=== PATIENT | male | born 1955 | race Caucasian/White ===

== ENCOUNTER 2018-05-04 08:53 | Day surgery (SDC) | payer BC ==
--- NOTE | 2018-04-08 10:33 | HP ---
AMENDED REPORT NOW INCLUDES COSIGNER DESIGNATION - ESIGNED BEFORE ADJUSTMENT PREOPERATIVE HISTORY AND PHYSICAL: DATE OF ADMISSION: 05/04/18 DATE OF SURGERY: 05/04/18 ATTENDING SURGEON: Jac Saravia MD * (DICTATED BY QAMAR SHOOK) PROCEDURE: Right shoulder arthroscopic rotator cuff repair, decompression, debridement, subpectoral biceps tenodesis, and excision of distal clavicle. CHIEF COMPLAINT: Right shoulder. HISTORY OF PRESENT ILLNESS: Garrison is a 63-year-old male who presents to the clinic for followup of right shoulder pain due to rotator cuff tear, biceps tendinitis and AC joint arthritis. He has failed conservative measures and agreed to undergo a right shoulder arthroscopic rotator cuff repair, decompression, debridement, subpectoral biceps tenodesis, and excision of distal clavicle with Dr. Saravia on 05/04/18. PAST MEDICAL HISTORY: DVT after knee surgery 2 years ago, diverticulitis, GERD , anxiety, and basal cell skin cancer in remission. PAST SURGICAL HISTORY: Cervical laminectomy left shoulder x2, right knee bursectomy. The patient denies prior complications of anesthesia. He does get nauseous with anesthesia. MEDICATIONS: 1. Advil 200 mg 3 to 4 tablets as needed for discomfort. 2. Vitamin D 2000 units 1 by mouth every day. 3. Finacea 15%, apply once or twice a day. 4. Restasis 0.05% 1 drop in each eye 2 times daily. 5. Multivitamin 1 by mouth everyday. 6. Claritin 10 mg 1 by mouth daily. ALLERGIES: ADHESIVE. FAMILY HISTORY: Positive for cancer. SOCIAL HISTORY: He lives with his spouse. He works as an business insurance agent. He denies tobacco use. He reports occasional alcohol consumption. He exercises regularly. He is right-hand dominant. REVIEW OF SYSTEMS: A 14-point review of systems was reviewed with the patient and positive for current complaints; otherwise negative. Denies numbness, tingling, fever, chills, chest pain, shortness of breath, history of bleeding disorder. He does have a positive history of DVT. Denies history of PE. PHYSICAL EXAMINATION GENERAL: A 63-year-old well-developed, well-nourished male, in no acute distress. Alert and oriented x3. Appropriate mood and affect. Appropriate balance and coordination of the upper extremities. VITAL SIGNS: Height 68.5, weight 189. Pulse 76, blood pressure 124/70, respiratory rate 20, temperature 97.8. BMI 28.4. HEENT: Normocephalic, atraumatic. PERRLA. Throat clear. NECK: Supple. PULMONARY: Lungs are clear to auscultation bilaterally. No wheezing, rhonchi or rales. CARDIO: Regular rate and rhythm. S1 and S2. No murmurs, gallops, or rubs. No edema. ABDOMEN: Positive bowel sounds. Soft, nontender. MUSCULOSKELETAL: Right upper extremity, skin is intact. No warmth or erythema. Tenderness to palpation over the AC joint and bicipital groove. Forward flexion to 170, abduction 150, external rotation 65, internal rotation to the thoracolumbar spine. +4/5 strength to supraspinatus testing with pain. +4/5 to subscapularis and infraspinatus. Positive impingement, Speed's, Wilder-Chivo and Bath. +2 radial pulse. Sensation is intact to light touch distally. NEUROLOGIC: Alert and oriented x3. Cranial nerves grossly intact. Sensation intact to light touch. DIAGNOSTIC STUDIES: Multi-view x-rays and MRI of the right shoulder revealed large subacromial bone spur, AC joint arthritis, high grade partial thickness tear of the supraspinatus tendon and fluid in the bicipital groove. IMPRESSION: Right shoulder rotator cuff tear, biceps tendinitis, and AC joint arthritis. PLAN: The patient is scheduled to undergo a right shoulder arthroscopic rotator cuff repair, decompression, debridement, subpectoral biceps tenodesis, and excision of distal clavicle with Dr. Saravia on 05/04/18. He has a history of DVT from a prior knee surgery, therefore will be placed on Lovenox 2 weeks postoperatively. Percocet will be used for postop pain meds and he will follow up in 10 to 14 days postop for followup and suture removal. QAMAR SHOOK [id number]/[facility] #: [id number] [facility]
[~2018-05-04 08:53] MED LIST: Buffered Lidocaine 0.9% SYRIN* 5 ML/SYR SYRINGE INTRADERM ONE; Dexamethasone TAB* 4 MG ONE; Dexamethasone TAB* 4 MG PO ONE; DiMENhydriNATE IV* 50 MG/ML VIAL IV PUSH PRN; Famotidine IV* 10 MG/ML 2 ML (20 mg) IV ONE; Famotidine IV* 10 MG/ML 2 ML (20 mg) ONE; KETAMINE HCL* 50 MG/ML 10 ML VIAL ONE; Midazolam* 1 MG/ML 5 ML VIAL (5 MG) ONE; Morphine INJ* 2 MG/ML 1 ML SYRINGE (TWO MG - NEW SYRINGE VERSION) IV PRN; Naloxone* 0.4 MG/ML 1 ML VIAL IV PRN; Ondansetron INJ* 2 MG/ML VIAL ONE; Ondansetron ODT TAB* 4 MG ONE; PROCHLORPERAZINE INJ 5 MG/ML 2 ML VIAL IV PRN; ROPIVACAINE 5 MG/ML 30 ML BTL (0.5%) ONE; Scopolamine 1.5 mg* PATCH TRANSDERM PRN; ceFAZolin 2 GM in NS PREMIX(*) 0 GM/0 ML BAG IVPB ONE; fentaNYL* 50 MCG/ML 2 ML VIAL (100 MCG VIAL) IV PRN; fentaNYL* 50 MCG/ML 2 ML VIAL (100 MCG VIAL) ONE; oxyCODONE/Acetamin 5/325 MG* TAB PO PRN
[2018-05-04] MEDS ORDERED: Clindamycin 900 MG/D5W BAG(*) 900 MG/50 ML BAG IVPB ONE (09:32)
[2018-05-04] MEDS ORDERED: ROPIVACAINE 5 MG/ML 30 ML BTL (0.5%) ONE (09:52)
[2018-05-04] MEDS ORDERED: Ketorolac INJ* 30 MG/ML 1 ML VIAL ONE (11:22)
[2018-05-04] MEDS ORDERED: PROCHLORPERAZINE INJ 5 MG/ML 2 ML VIAL ONE (11:22)
[2018-05-04] MEDS ORDERED: Lidocaine 2% PF * 5 ML VIAL ONE (11:22)
[2018-05-04] MEDS ORDERED: Propofol* 10 MG/ML 20 ML BTL IV PUSH ONE (11:22)
[2018-05-04] MEDS ORDERED: Morphine INJ* 10 MG/ML 1 ML CARPUJECT ONE (11:53)
[2018-05-04] MEDS ORDERED: Labetalol IV* 5 MG/ML 20 ML VIAL ONE (12:09)
[2018-05-04 13:15] VITALS: BP 138/71
--- NOTE | 2018-05-05 01:59 | OP ---
CC: PCPDr. Farfan * DATE OF OPERATION: 05/04/18 - [facility] DATE OF : 57 SURGEON: Jac Saravia MD SHOW CARD WRITER: QAMAR Shook. An certified physician's assistant was needed for the entirety of the case to help with positioning, retraction, and was utilized throughout all portions of the case. ANESTHESIOLOGIST: Dr. Sauceda. ANESTHESIA: General with interscalene block. PRE-OP DIAGNOSES: Right shoulder high grade partial-thickness tear of the rotator cuff with biceps SLAP tear and AC joint arthritis and impingement. POST-OP DIAGNOSES: Right shoulder high grade partial-thickness tear of the rotator cuff with biceps SLAP tear and AC joint arthritis and impingement. OPERATIVE PROCEDURE: Right shoulder arthroscopy with: 1. Extensive glenohumeral debridement. 2. Subacromial decompression with acromioplasty. 3. Distal clavicle excision. 4. Rotator cuff repair. 5. Subpectoral biceps tenodesis. COMPLICATIONS: None. ESTIMATED BLOOD LOSS: Minimal. IMPLANTS USED: Two 4.75 Healicoil, two MULTIFIX, and one 2.8 mm Q-FIX. INDICATIONS: Garrison Smith is a 63-year-old male with persistent right shoulder pain refractory to conservative management. His MRI demonstrates a high-grade partial thickness tear of the rotator cuff. Risks and benefits of the surgery were discussed at length including, but not limited to bleeding; infection; damage to nerves, vessels, surrounding structures; wound nonhealing; persistent pain; need for further surgery; scarring; stiffness; incomplete relief of symptoms; and risks of anesthesia. DESCRIPTION OF PROCEDURE: The patient was greeted in the preoperative area by the attending surgeon. Correct extremity was marked and the consent was confirmed. The patient underwent interscalene nerve block by the anesthesiologist after which he was brought back to the operative suite, he was placed in supine position on the operative table and then rolled into the lateral decubitus position, he underwent general anesthesia with LMA intubation. After appropriate surgical pause indicating site, side, procedure, administration of antibiotics, the right arm was draped unsterile with 10 pounds of traction. The right shoulder was then prepped and draped in the usual sterile fashion beginning with chlorhexidine soap, scrub, and alcohol wipe and a final prep with ChloraPrep. After appropriate surgical pause indicating site, side, procedure, administration of antibiotics, the standard posterolateral portal was made sharply with an 11- blade. There was abundant synovitis. There was evidence of type 2 SLAP tear and then the biceps was subluxed with some tendonitis and tendinosis. There was high- grade partial thickness tearing of the supraspinatus tendon with some retraction. The undersurface of the subscap had some mild fraying. The anterior portal was made in an outside-in fashion. The shaver was used to debride back the anterior, posterior and superior labrum. The biceps was tunnelized for later tenodesis. The inferior recess was intact. There were grade 1 changes to the glenohumeral joint. The undersurface of the subscap was debrided back using the shaver. At this point, once the debridement was completed, attention was directed to the subacromial space. With the scope in the subacromial space, a lateral portal was made in outside- in fashion. The shaver was used to debride back the abundant bursa that was present. The undersurface of the acromion had very sharp anterolateral spur. This was debrided back using a 4-0 oval avel. CA ligament was also released back. This was taken back to the level of the clavicle, which was exposed. There was abundant stenosis at the clavicle. The attention was directed to the distal clavicle resection. The scope was positioned through the anterior portal. The distal 8 mm of the clavicle were then removed using a 4-0 oval avel. The clavicle was taken through range of motion as well as final images that demonstrated an adequate resection. Care was taken to not damage CC ligament. The attention was directed to the rotator cuff. The cuff was probed on the bursal side that we knew he had a high-grade partial thickness tear. The tear was completed with an 11 blade and the cuff was debrided back to its stable layer. The greater tuberosity was prepared in usual fashion with a rasp, 4-0 oval avel, electrocautery device. Once this was done, through a separate stab incision, two 4.75 Healicoil were placed. He had excellent bone quality. Once they were passed through the tendon in a horizontal mattress configuration, a small microfracture of the greater tuberosity was done to incorporate extra bony bleeding and then to assist with healing. The sutures were passed and then tied down using arthroscopic knot-tying technique. The one strand of each knot was then passed through a MultiFix that was placed anterolaterally for lateral row fixation. The second one placed posterolaterally for lateral row fixation. The final images were obtained. This compressed the cuff and reapproximated the cuff. The wounds were then copiously irrigated with sterile saline and attention was directed to the biceps. The bed was airplaned to the right side. The skin was prepped again using ChloraPrep. A 15-blade was used to make an incision along the biceps tendon. Soft tissues were carefully dissected to expose the fascia. Remainder of the dissection was done bluntly. The pec was elevated. The groove was palpated. The biceps was brought through the groove. There was abundant synovitis, tendonitis as well as tendinosis. The groove was then rasped and was prepared in the usual fashion with electrocautery, the red ball rasp and osteotome. The Q-FIX was then drilled and placed with excellent purchase. The sutures were passed through the tendon approximately 1 cm proximal to the musculotendinous junction in a Kaiser-Juan Manuel type configuration. The excess stump was excised. This was then tied down. The wounds were copiously irrigated with sterile saline. The portals were closed with 3-0 nylon. The anterior wound was closed in layers with 2-0 Vicryl and 3-0 Monocryl. Sterile dressings were applied. Cryo/Cuff and UltraSling were applied. He was awoken from anesthesia in stable condition. POSTOPERATIVE PLAN: He will be nonweightbearing. He will be in a sling for 6 weeks. He will be discharged on pain medications. He does have a history of DVT, so he will be on Lovenox for 2 weeks. I will see the patient back in 10 to 14 days. [id number]/[facility] #: [id number] LUCINDA
[2018-05-07] MEDS ORDERED: Scopolamine PATCH Remove* 1 NOTE MISC PATCH OFF ONE (05:44)
== END 2018-05-04 13:33 | disposition home or self-care (01) ==
LOC: OREAST 08:53
PROVIDERS: ATTEND Orthopaedic Surgery
DX: S46.011A Strain of muscle(s) and tendon(s) of the rotator cuff of right shoulder, initial encounter (principal); S43.491A Other sprain of right shoulder joint, initial encounter; X58.XXXA Exposure to other specified factors, initial encounter; Y92.9 Unspecified place or not applicable; M19.011 Primary osteoarthritis, right shoulder; M75.41 Impingement syndrome of right shoulder; G89.18 Other acute postprocedural pain; K21.9 Gastro-esophageal reflux disease without esophagitis; F41.9 Anxiety disorder, unspecified
CPT/HCPCS: A9270-GY; C1713; C1776; J0690; J0780; J1885; J2250; J2270; J2704; J2795; J3010; J8540

== ENCOUNTER 2019-06-28 06:16 | Day surgery (SDC) | payer BC ==
[~2019-06-28 06:16] MED LIST changes: -Buffered Lidocaine 0.9% SYRIN* 5 ML/SYR SYRINGE INTRADERM ONE; +Buffered Lidocaine 1% SYRIN* 1 ML/SYRINGE INTRADERM ONE; -Dexamethasone TAB* 4 MG ONE; -Dexamethasone TAB* 4 MG PO ONE; -DiMENhydriNATE IV* 50 MG/ML VIAL IV PUSH PRN; -Famotidine IV* 10 MG/ML 2 ML (20 mg) IV ONE; -Famotidine IV* 10 MG/ML 2 ML (20 mg) ONE; -KETAMINE HCL* 50 MG/ML 10 ML VIAL ONE; +Lactated Ringers 1000 ML Bag* 1,000 ML IV SCH; -Midazolam* 1 MG/ML 5 ML VIAL (5 MG) ONE; -Morphine INJ* 2 MG/ML 1 ML SYRINGE (TWO MG - NEW SYRINGE VERSION) IV PRN; -Naloxone* 0.4 MG/ML 1 ML VIAL IV PRN; -Ondansetron INJ* 2 MG/ML VIAL ONE; -Ondansetron ODT TAB* 4 MG ONE; -PROCHLORPERAZINE INJ 5 MG/ML 2 ML VIAL IV PRN; -ROPIVACAINE 5 MG/ML 30 ML BTL (0.5%) ONE; -Scopolamine 1.5 mg* PATCH TRANSDERM PRN; -ceFAZolin 2 GM in NS PREMIX(*) 0 GM/0 ML BAG IVPB ONE; -fentaNYL* 50 MCG/ML 2 ML VIAL (100 MCG VIAL) IV PRN; -fentaNYL* 50 MCG/ML 2 ML VIAL (100 MCG VIAL) ONE; -oxyCODONE/Acetamin 5/325 MG* TAB PO PRN
[2019-06-28] MEDS ORDERED: Famotidine IV* 10 MG/ML 2 ML (20 mg) ONE (06:23)
[2019-06-28] MEDS ORDERED: Dexamethasone IV* 4 MG/ML 1 ML (4 MG) ONE (06:23)
[2019-06-28] MEDS ORDERED: ceFAZolin 2 GM PREMIX in ORs 0 GM/0 ML BAG ONE (06:23)
[2019-06-28] MEDS: Famotidine IV* 10 MG/ML 2 ML (20 mg) IV ONE ×2 (06:46→06:47)
[2019-06-28] MEDS: Dexamethasone IV* 4 MG/ML 1 ML (4 MG) IV SLOW PU ONE ×2 (06:47→07:01)
[2019-06-28] MEDS ORDERED: fentaNYL* 50 MCG/ML 2 ML VIAL (100 MCG VIAL) ONE ×3 (06:58→09:41)
[2019-06-28] MEDS ORDERED: Midazolam* 1 MG/ML 2 ML VIAL (2 MG) ONE (06:58)
[2019-06-28] MEDS ORDERED: Lidocaine 2% PF * 5 ML VIAL ONE (06:59)
[2019-06-28] MEDS ORDERED: ROPIVACAINE 5 MG/ML 30 ML BTL (0.5%) ONE (07:02)
[2019-06-28] MEDS ORDERED: Clindamycin 900 MG/D5W BAG(*) 900 MG/50 ML BAG IVPB ONE (07:03)
[2019-06-28] MEDS ORDERED: Ropivacaine 0.2% * 2 MG/ML VIAL ONE (07:26)
[2019-06-28] MEDS ORDERED: Ketorolac INJ* 30 MG/ML 1 ML VIAL ONE (08:07)
[2019-06-28] MEDS ORDERED: Ondansetron INJ* 2 MG/ML VIAL ONE (08:07)
[2019-06-28] MEDS ORDERED: Naloxone* 0.4 MG/ML 1 ML VIAL IV PRN (08:12)
[2019-06-28] MEDS ORDERED: Scopolamine 1.5 mg* PATCH TRANSDERM PRN (08:12)
[2019-06-28] MEDS ORDERED: fentaNYL* 50 MCG/ML 2 ML VIAL (100 MCG VIAL) IV PRN (08:12)
[2019-06-28] MEDS ORDERED: HYDROmorphone INJ1* 1 MG/ML SYRINGE IV PRN (08:12)
[2019-06-28] MEDS ORDERED: DiMENhydriNATE IV* 50 MG/ML VIAL IV PUSH PRN (08:12)
[2019-06-28] MEDS ORDERED: Acetaminophen TAB* 325 MG ONE (09:58)
[2019-06-28 10:41] VITALS: BP 154/76
--- NOTE | 2019-06-28 11:55 | OP ---
DATE OF OPERATION: 06/28/19 [facility] DATE OF : 57 SURGEON: Jac Saravia MD. QUANTITATIVE ANALYST MARKETING: QAMAR Shook. An assistant community manager was needed for the entirety of the case to help with positioning, retraction, and was utilized throughout all portions of the case. ANESTHESIOLOGIST: Dr. Berger. ANESTHESIA: General with interscalene block. PRE-OP DIAGNOSIS: Right shoulder partial tear of the rotator cuff, previously repaired. POST-OP DIAGNOSIS: Right shoulder tear of the previous rotator cuff repair. OPERATIVE PROCEDURE: Right shoulder arthroscopy with: 1. Extensive glenohumeral debridement. 2. Revision decompression. 3. Revision rotator cuff repair in a double-row fashion, augmented with Regeneten patch. 4. Removal of foreign body x3, deep sutures. COMPLICATIONS: None. ESTIMATED BLOOD LOSS: Minimal. IMPLANTS: Two Healicoils and 2 MultiFixes, 1 Regeneten patch, size medium. INDICATIONS: Garrison Smith is a 64-year-old male who has had a previous shoulder arthroscopic rotator cuff repair. He did really well initially and then started to have pain after a physical therapy visit. This happened with therapy. He started to have persistent pain. After extensive discussion of risks and benefits of repeat MRI that demonstrated high-grade partial thickness tear of the previously repaired cuff, we would like to proceed with surgical evaluation and possible Regeneten patch. After extensive discussion of the risks and benefits of surgical versus nonoperative treatment, he has elected to proceed with surgical treatment. Risks and benefits include but are not limited to bleeding; infection; damage to nerves, vessels, surrounding structures; wound nonhealing; persistent pain; need for surgery; scarring; stiffness; incomplete relief of symptoms; risk of anesthesia. DESCRIPTION OF PROCEDURE: The patient was greeted in the preoperative area by the attending surgeon. Correct extremity was marked and consent was confirmed. The patient underwent interscalene nerve block, after which he was brought back to the operating suite where he was placed in the supine position on the operating table and then underwent general anesthesia and LMA intubation after which he was placed in the left lateral decubitus position with an axillary roll. All bony prominences were padded and secured with a pegboard. The right shoulder was then prepped and draped in the usual sterile fashion beginning with chlorhexidine soap, scrub, and alcohol wipe and a final prep with ChloraPrep. After appropriate surgical pause, indicating side, site, procedure, and administration of antibiotics, the standard postero-lateral portal was made sharply with 11-blade. The scope was introduced into the joint. There was abundant thick scar tissue that was present. The joint was found to have some mild grade 0 to 1 changes. The anterior labrum had some mild fraying. Superior labrum had evidence of previous tenotomy and tenodesis. Subscap was intact. The inferior recess was intact. There was significant synovitis throughout shoulder. The undersurface of the rotator cuff was examined. There was evidence of tearing of the undersurface of the rotator cuff. The sutures did not appear to have good tension. The anterior portal was made in an outside -in fashion. Again, there was abundant scar that was present. The cuff was then marked with an 0-PDS suture. Shaver was used to debride the anterior and posterior labrum due to small chondroplasty in the glenoid. The concern was possibly being a full-thickness tear. Once the intraarticular work was completed, attention was directed to the subacromial space. The scope was positioned in the subacromial space. Fluid egress came back, which indicated there was probably a full-thickness tear. The previous bursectomy had maintained, but there was abundant scar tissues. The undersurface of the acromion was skeletonized using electrocautery device. There was abundant scar about the subdeltoid recess, which was removed. The cuff was examined and there was evidence of tearing, sort of where the suture knots had been placed and descending somewhat laterally. And some of the sutures have been pulled through. The knife was then used to cut the sutures, which was then removed. Once the sutures were removed, the cuff was then examined and the shaver was used to debride back and mobilize the cuff. There was abundant scar tissue, but there was still an area of cuff that was intact. The undersurface of the acromion had a small anterolateral spur. This was debrided back using 4-0 oval avel. Once this was completed, attention was directed to the cuff. The greater tuberosity which was exposed was then skeletonized, it was then rasped as well as the 4-0 oval bur was used to gently decorticate the area. Once this was done, the cuff was then carefully mobilized. Decision was made to treat this in a double-row fashion. Again, through two separate stab incisions, two Healicoils loaded with tape were then placed in the medial row. These were placed with excellent purchase. A small microfracture was done to allow to facilitate bleeding and extra healing. The sutures were then passed in a horizontal mattress configuration. After they were all passed, they were tied down using an arthroscopic knot-tying technique to reapproximate the cuff. The sutures one strand from each were then passed through a Multifix for anterolateral row fixation. The remainder suture was placed through a posterolateral row fixation. This allowed for compression of the cuff in a good repair. Decision was made to augment this with Regeneten patch with revision and this can help with not only pain control, but also healing. A size medium Regeneten patch was brought to the field. It was then placed in arthroscopic direct visualization and was secured medially with tendon cyrus and laterally with PEEK bone cyrus. The shoulder was then taken to gentle range of motion and found to be well placed. The final images were obtained. The wound was copiously irrigated with sterile saline. Portals were closed with 3-0 nylon. Sterile dressings were applied. A Cryo/Cuff and UltraSling were applied. He was awoken from anesthesia and transferred to the PACU in stable condition. POSTOPERATIVE PLAN: He will be nonweightbearing and use sling for 6 weeks. Discharged on pain medication and antibiotics due to revision surgery. DVT prophylaxis due to his history will be 1 week of Lovenox. I will see the patient back in 10 to 14 days. [id number]/[facility] #: [id number] LUCINDA
== END 2019-06-28 10:50 | disposition home or self-care (01) ==
LOC: OREAST 06:16
PROVIDERS: ATTEND Orthopaedic Surgery
DX: S46.011D Strain of muscle(s) and tendon(s) of the rotator cuff of right shoulder, subsequent encounter (principal); X58.XXXD Exposure to other specified factors, subsequent encounter; Y92.9 Unspecified place or not applicable; G89.18 Other acute postprocedural pain; Z68.32 Body mass index [BMI] 32.0-32.9, adult; Z86.718 Personal history of other venous thrombosis and embolism; Z85.828 Personal history of other malignant neoplasm of skin
CPT/HCPCS: A9270-GY; C1713; J0690; J1100; J1885; J2250; J2405; J2795; J3010

== ENCOUNTER 2024-02-16 05:32 | Observation (INO) ==
[~2024-02-16 05:32] MED LIST changes: -Buffered Lidocaine 1% SYRIN* 1 ML/SYRINGE INTRADERM ONE; -Lactated Ringers 1000 ML Bag* 1,000 ML IV SCH; +Naloxone 0.4 mg VIAL 0.4 mg/ml 1 ml VIAL IV PRN; +Prochlorperazine 5 mg/ml 2 ml VIAL (10 mg) IV PRN; +fentaNYL 100 mcg/2 ml 50 MCG/ML VIAL IV PRN
[2024-02-16] MEDS ORDERED: Tranexamic Acid 1 GM/100ML BAG 2,000 MG/200 ML BAG IV ONE (06:15)
[2024-02-16] MEDS ORDERED: ceFAZolin 2 GM in NS PREMIX 2 GM/100 ML BAG IVPB ONE (06:15)
[2024-02-16 06:29] LABS: Rapid COVID-19 Molecular Undetected (Undetected)
[2024-02-16] MEDS: Lactated Ringers 1000 ml BAG 1,000 ML IV SCH ×2 (06:31→12:43)
[2024-02-16] MEDS ORDERED: Rocuronium 50 mg VIAL 10 mg/ml 5 ml VIAL (50 mg) ONE ×3 (06:34→09:37)
[2024-02-16] MEDS ORDERED: Midazolam 2 mg/2 ml VIAL 1 mg/ml 2 ml VIAL (2 mg) ONE (06:34)
[2024-02-16] MEDS ORDERED: fentaNYL 100 mcg/2 ml 50 MCG/ML VIAL ONE (06:34)
[2024-02-16] MEDS ORDERED: Propofol 10 MG/ML 20 ML BTL ONE (06:35)
[2024-02-16] MEDS ORDERED: Ondansetron 4 mg VIAL 2 MG/ML 2 ml VIAL ONE (06:35)
[2024-02-16] MEDS ORDERED: Lidocaine 2% PF 5 ML VIAL ONE (06:35)
[2024-02-16] MEDS ORDERED: Dexamethasone IV 4 MG/ML VIAL 1 ml VIAL ONE (06:35)
[2024-02-16] MEDS ORDERED: Vancomycin 1,000 MG VIAL ONE (06:56)
[2024-02-16] MEDS ORDERED: ROPIVACAINE 5 MG/ML 30 ML BTL (0.5%) ONE (07:13)
[2024-02-16] MEDS ORDERED: Phenylephrine IV 10 MG/ML 1 ml VIAL ONE (08:19)
[2024-02-16] MEDS ORDERED: Magnesium Hydroxide LIQ 30 ML UDC PO PRN (11:19)
[2024-02-16] MEDS ORDERED: Lactulose 30 ml UDC PO PRN (11:19)
[2024-02-16] MEDS ORDERED: Ondansetron ODT 4 mg TAB 4 MG TAB PO PRN (11:19)
[2024-02-16] MEDS ORDERED: Morphine 2 MG/ML SYRINGE IV PRN (11:19)
[2024-02-16] MEDS ORDERED: Ondansetron 4 mg VIAL 2 MG/ML 2 ml VIAL IV PRN (11:19)
[2024-02-16] MEDS: Buffered Lidocaine 1% SYRIN 1 ml INTRADERM ONE (12:51)
[2024-02-16] MEDS ORDERED: Acetaminophen IV 1 GM/100ML 1,000 MG/100 ML BAG IV ONE (13:51)
[2024-02-16 14:48] VITALS: BP 129/64
[2024-02-16] MEDS: ceFAZolin 2 GM PREMIX 2 GM/50 ML BAG IVPB SCH (15:38)
[2024-02-16] MEDS ORDERED: Magnesium Hydroxide LIQ 30 ML UDC PO SCH (21:00)
[2024-02-17] MEDS ORDERED: Vitamin THERAPEUTIC TAB PO SCH (09:00)
== END 2024-02-16 16:16 | disposition home or self-care (01) ==
LOC: AA 05:32 → INTOOBSV 05:32 → SSU 11:19
PROVIDERS: ADMIT Orthopaedic Surgery; ATTEND Orthopaedic Surgery